=== PATIENT | female | born 2000 | race Caucasian/White ===

== ENCOUNTER 2021-05-17 19:25 | Outpatient (REF) | payer OTHER, SELFPAY | END 2021-05-17 19:26 | disposition home or self-care (01) | LOC: HO.LNP 19:25 | PROVIDERS: Visit Provider Physician Assistant Medical | DX: Z20.822 Contact with and (suspected) exposure to COVID-19 (principal); J06.9 Acute upper respiratory infection, unspecified | CPT/HCPCS: U0003; U0005 ==

== ENCOUNTER 2021-07-10 11:18 | Emergency (ER) | payer OTHER, SELFPAY ==
--- NOTE | ~2021-07-10 | XR_ITS ---
EXAMINATION: XR CHEST CLINICAL INFORMATION: Chest pain COMPARISON: None TECHNIQUE: Frontal view of the chest was obtained. FINDINGS: No significant abnormality is noted involving the heart, lungs, mediastinum, bony thorax or soft tissues. XR/XR chest 1V IMPRESSION: Unremarkable chest examination.
--- NOTE | ~2021-07-10 | CT_ITS ---
EXAMINATION: CT ANGIOGRAM OF THE CHEST WITH AND WITHOUT CONTRAST (CT PULMONARY ANGIOGRAM FOR PE) CLINICAL INFORMATION: Reason for Exam Pleuritic pain short of breath elevated D-dimer rule out pe COMPARISON: None TECHNIQUE: Prior to contrast administration, noncontrast localization images were obtained. Subsequently, multidetector volumetric imaging was performed from the thoracic inlet to below the diaphragms following the administration of 71 mL Omnipaque 350 intravenous contrast. No contrast reaction reported Sagittal, coronal, and MIP oblique sagittal reformatted images were obtained on the CT workstation, uploaded to PACS, and reviewed. This CT examination was performed using dose optimization techniques as appropriate, variously including the following: *Automated exposure control *Adjustment of mA and/or kV according to patient size (this includes techniques or standardized protocols for targeted exams where dose is matched to indication/reason for exam; i.e. extremities or head) *Use of iterative reconstruction technique Total exam dose-length product 365 mGy-cm FINDINGS: QUALITY OF STUDY/CONTRAST BOLUS: Suboptimal with suboptimal bolus along with respiratory artifact. PULMONARY ARTERIES: No central or large segmental pulmonary emboli. THORACIC AORTA: No aneurysm or dissection. LUNG: No focal consolidation, nodules or masses. PLEURA: No pleural effusion or pneumothorax. MEDIASTINUM: Normal heart size. No pericardial effusion. No hilar or mediastinal lymphadenopathy. No evidence of septal bowing or right heart strain. CHEST WALL/AXILLA: No axillary or internal mammary lymphadenopathy. OSSEOUS STRUCTURES: No acute or suspicious osseous abnormality. UPPER ABDOMEN: Unremarkable. No reflux of contrast into the hepatic veins to suggest elevated right heart pressures. CT/CT angio chest PE protocol IMPRESSION: No pulmonary emboli detected. The exam is slightly as described above. VTE: negative
[2021-07-10 11:22] VITALS: BP 148/78; PULSE 91; RESP 18; TEMP 36.6; O2SAT 100; BMI 43.2
--- NOTE | 2021-07-10 11:25 | ECG_ITS ---
Test Reason : CHEST PAIN Blood Pressure : / mmHG Vent. Rate : 090 BPM Atrial Rate : 090 BPM P-R Int : 132 ms QRS Dur : 078 ms QT Int : 348 ms P-R-T Axes : 045 075 030 degrees QTc Int : 425 ms Normal sinus rhythm with sinus arrhythmia Normal ECG No previous ECGs available Referred By: Generic ED Physician Electronically Signed By:RITA TEE
[2021-07-10 12:25] LABS: Hematocrit 43.2 % (37.0-47.0); Hemoglobin 13.5 g/dl (12.0-16.0); Mean Corpuscular HGB Conc 31.3 g/dl (31.0-35.0); Mean Corpuscular Hemoglobin 26.6 pg (27.0-33.0); Mean Corpuscular Volume 85.2 fL (80.0-98.0); Mean Platelet Volume 10.5 fL (9.4-12.3); Platelet Count 390 X10*3/uL (160-400); Red Blood Count 5.07 X10*6/uL (4.20-5.50); Red Cell Distribution Width 15.6 % (11.0-16.0); White Blood Count 11.4 X10*3/uL (4.8-10.8)
[2021-07-10 12:41] LABS: Anion Gap 11 (12-20); Blood Urea Nitrogen 12 mg/dL (9-16); Calcium 9.9 mg/dL (8.4-10.2); Carbon Dioxide 26 mmol/L (22-29); Chloride 107 mmol/L (96-108); Estimated Glomerular Filt Rate > 60; Glucose Random 100 mg/dL (60-115); Potassium 4.3 mmol/L (3.3-5.1); Sodium 140 mmol/L (135-145)
[2021-07-10 12:51] LABS: Troponin-I High Sensitivity < 3.5 ng/L (<3.5-17.0)
[2021-07-10 14:49] LABS: HCG Quantitative < 2 mIU/mL
--- NOTE | 2021-07-10 16:53 | ED_ITS ---
HPI - Chest Pain General Chief Complaint: Chest Pain Stated Complaint: Chest pain/SOB Time Seen by Provider: 07/10/21 14:25 Source: patient Mode of arrival: ambulatory Limitations: no limitations History of Present Illness HPI narrative: 20-year-old female recently tested positive for COVID 2 weeks ago presents to ED for pleuritic chest pain. Patient states anterior chest wall pain and having chest pain on inspiration. Patient denies any swelling of lower extremities, calf pain, or coughing up blood. Patient recieved covid Vaccine Phizer, but no booster. Related Data Home Medications Medication Instructions Recorded Confirmed desogestrel-e.estradiol 0.15 1 tab PO DAILY 02/16/21 mg-0.02 mg(21)/e.estrad 0.01 mg(5) tablet (Kariva (28)) dextroamphetamine-amphetamine ER 1 cap PO QAM 02/16/21 20 mg 24hr capsule,extend release (Adderall XR) escitalopram oxalate 10 mg tablet 10 mg PO DAILY 02/16/21 sertraline 50 mg tablet mg PO 02/16/21 Previous Rx's Medication Instructions Recorded famotidine 40 mg tablet (Pepcid) 40 mg PO BEDTIME PRN #30 tab 02/16/21 omeprazole 40 mg capsule,delayed 40 mg PO DAILY #30 cap 02/16/21 release ondansetron HCl 8 mg tablet 8 mg PO Q8H PRN #20 tab 02/16/21 Allergies Allergy/AdvReac Type Severity Reaction Status Date / Time Penicillins Allergy Severe Stomach Verified 05/17/21 16:48 Upset Review of Systems Verdana 4l Review of Systems: Verdana 4d pleuretic chest pain. Verdana 4d Negative for any coughing up blood, calf pain, or leg swelling Verdana 4d Yes all other systems are reviewed and are negative PMFSH Social History Social History Patient Tobacco Use Status: Never used Tobacco Advance Directives: No Advance Directives Information Provided: No Physical Exam Verdana 4l Vital Signs: Verdana 4d Verdana 4d Vital Signs: Verdana 4d Verdana 4Bd Last Vital Signs Verdana 4d Litigation Secretary New 4d Litigation Secretary New 4d Temp 97.8 F 07/10/21 11:22 Litigation Secretary New 4d Pulse 91 07/10/21 11:22 Litigation Secretary New 4d Resp 18 07/10/21 11:22 BP 148/78 H 07/10/21 11:22 Pulse Ox 100 07/10/21 11:22 BMI result Body Mass Index 43.2 Const: General: cooperative, healthy appearing, comfortable, no acute distress, well developed, alert and awake Orientation/consciousness: oriented to time and patient oriented x3 HENMT: Head: Yes normal to inspection, Yes No palpable skull fracture present, Yes normocephalic and Yes atraumatic Eyes: General: appearance normal, both eyes and all related structures Neck: Neck: Yes normal visual inspection, Yes full ROM, Yes no lymphadenopathy, Yes no meningeal signs, Yes trachea midline, Yes supple, No anterior neck swelling and No tender Chest: Chest palpation & inspection: normal inspection of the chest and normal palpation of entire chest wall Chest/axillae images: 1. positive for chest wall tendeness on palpation. Resp: Effort & Inspection: normal respiratory effort and able to speak in complete sentences Auscultation: clear to auscultation bilaterally Cardio: Jugular venous distension: no JVD Heart sounds: S1 normal heart sound present and S2 normal heart sound present GI: Inspection: Yes normal to inspection and No abdominal wall ecchymosis Palpation (GI): Soft to palpation, not firm, nontender, no guarding and not rigid : General: No CVA tenderness and Yes no CVA tenderness Back/Spine/Pelvis: Back: no CVA tenderness, No CVA tenderness and No back tenderness Skin: General skin exam: no rashes or lesions noted and elasticity normal Neuro: General: oriented to time, patient oriented x3, gait normal, tone normal, moves all extremities, Normal light touch and pain sensation and no meningeal signs Extrem: Other: Lower extremities negative for swelling, pitting edema, or calf tenderness General: Yes normal to inspection and Yes full ROM Psych: Appearance: grossly normal, well kempt and not disheveled Course Course Course Narrative: Patient had rapid medical screening done which shows normal x-ray. Troponin negative CBC normal. Patient states pleurisy and on control with recent COVID will sent D-dimer. Ekg normal Reevaluation(s) Reevaluation #1: Repeat vital signs stable. Patient denied any distress. Most likely costochondritis. Waiting for D-dimer results. Will signed out to [facility] [place]. patient is not in distress. Time: 17:58 MDM - Chest Pain MDM Narrative Medical decision making narrative: costochondritis Lab Data Result diagrams: 07/10/21 12:19 07/10/21 12:19 Labs: Lab Results 07/10/21 07/10/21 07/10/21 Range/Units 12:19 12:19 12:19 WBC 11.4 H (4.8-10.8) X10*3/uL RBC 5.07 (4.20-5.50) X10*6/uL Hgb 13.5 (12.0-16.0) g/dl Hct 43.2 (37.0-47.0) % MCV 85.2 (80.0-98.0) fL MCH 26.6 L (27.0-33.0) pg MCHC 31.3 (31.0-35.0) g/dl RDW 15.6 (11.0-16.0) % Plt Count 390 (160-400) X10*3/uL MPV 10.5 (9.4-12.3) fL Absolute Nucleated RBC 0.000 (0.0-0.012) X10*3/uL Nucleated RBC % (auto) 0.0 (0.0-0.2) /100WBC Sodium 140 (135-145) mmol/L Potassium 4.3 (3.3-5.1) mmol/L Chloride 107 (96-108) mmol/L Carbon Dioxide 26 (22-29) mmol/L Anion Gap 11 L (12-20) BUN 12 (9-16) mg/dL Creatinine 0.68 (0.5-1.4) mg/dL Estim Creat Clear Calc 168.0 Estimated GFR > 60 Random Glucose 100 (60-115) mg/dL Calcium 9.9 (8.4-10.2) mg/dL Troponin I High Sens < 3.5 (<3.5-17.0) ng/L Beta HCG, Quant < 2 mIU/mL ECG Data ECG #1: Interpretation: Normal sinus rhythm. Ventricular rate 90. Parents for 132. QRS 78. QTC 425. Negative STEMI Discharge Plan Discharge Clinical Impression: Atypical chest pain, Acute costochondritis Patient Disposition: Still a Patient Instructions: Chest Pain (ED), Costochondritis (ED), Chest Wall Pain (ED) Additional Instructions: Due to your gastritis avoid NSAIDs. You can take Tylenol or extra Tylenol over the counter for pain relief. Return to ED for any leg swelling, calf pain, coughing up blood, weakness, chest pain or shortness of breath on exertion, or any other concerning symptoms. Please follow-up with primary care provider Prescriptions: No Action escitalopram oxalate 10 mg tablet 10 mg PO DAILY 0RF dextroamphetamine-amphetamine [Adderall XR] 20 mg capsule,extended release 24hr 1 cap PO QAM 0RF sertraline 50 mg tablet PO 0RF desog-e.estradiol/e.estradiol [Kariva (28)] 0.15-0.02 mgx21 /0.01 mg x 5 tablet 1 tab PO DAILY 0RF famotidine [Pepcid] 40 mg tablet 40 mg PO BEDTIME PRN (Reason: Gastritis) Qty: 30 0RF ondansetron HCl 8 mg tablet 8 mg PO Q8H PRN (Reason: nausea and vomiting) Qty: 20 0RF omeprazole 40 mg capsule,delayed release(DR/EC) 40 mg PO DAILY Qty: 30 0RF Stand Alone Forms: Work/School Release Print Language: Estonian
[2021-07-10 17:55] VITALS: BP 129/72; PULSE 85; RESP 18; O2SAT 100
--- NOTE | 2021-07-10 18:25 | PC.NURSE ---
UNABLE TO DRAW LABS. WAITING PCT TO DRAW D DIMER.
[2021-07-10 18:46] LABS: Prothrombin Time 11.8 SEC (9.9-13.0)
[2021-07-10 18:48] LABS: D Dimer High Sensitivity 294 NG/ML; Partial Thromboplastin Time 34.5 SEC (24.1-38.0)
[2021-07-10] MEDS: iohexoL 350 MG/ML 100 ML INFUS..BTL IV (20:09)
[2021-07-10 20:40] VITALS: BP 138/78; PULSE 90; RESP 18; O2SAT 99
== END 2021-07-10 21:34 | disposition still patient (30) ==
PROVIDERS: Physician Assistant; Emergency Provider Internal Medicine
DX: R07.89 Other chest pain (principal); M94.0 Chondrocostal junction syndrome [Tietze]; Z86.16 Personal history of COVID-19
CPT/HCPCS: 36415; 71045; 71275; 80048; 84484; 84702; 85027; 85379; 85610; 85730; 93005; 99284; Q9967

== ENCOUNTER 2022-02-05 11:10 | Emergency (ER) | payer OTHER, SELFPAY ==
[2022-02-05 11:22] VITALS: BP 162/99; PULSE 89; RESP 18; TEMP 37; O2SAT 100; BMI 43.2
[2022-02-05 11:48] LABS: Strep A Nucleic Acid Negative (Negative)
[2022-02-05 12:01] LABS: COVID-19 Test Negative (Negative); IDNOW Serial# 9DB6401D
[2022-02-05 12:02] LABS: IDNOW Serial# 55D5AD1C; Influenza A Negative (Negative); Influenza B2 Negative (Negative)
--- NOTE | 2022-02-05 15:06 | ED.GENADULT ---
HPI - General Adult General Chief complaint: Upper Respiratory Symptoms Stated complaint: Swollen tonsils Time Seen by Provider: 02/05/22 13:59 Source: patient and family (mother) Mode of arrival: ambulatory Limitations: no limitations History of Present Illness HPI narrative: Patient is a 21 year old female presenting to the emergency department today with swollen tonisils. Patient states that since October of 2021 she has been battling recurrent tonsil/throat infections. Patient states that she has an appointment with an ENT but can't get in until early March. Patient states that in the past she was given steroid pack and a Z-pack antibiotic but they don't seem to help. Patient denies any dizziness, lightheadedness, abdominal pain, nausea, vomiting, fever, chills, blurry vision, double vision, loss of vision, chest pain, difficulty breathing, shortness of breath, back pain, night sweats, pain with urination, increased urinary frequency, increased urinary urgency, blood in her urine or stool, syncope or a near syncopal episode, recent trauma or falls, bowel incontinence, bladder incontinence, bowel retention, bladder retention, or any other complaints at this time. Onset (ago): month(s) (3) Radiation: non-radiation Severity: mild Severity scale (1-10): 1 Quality: dull Pain Consistency: constant Relieving factors: none Exacerbating factors: none Associated symptoms: denies other symptoms Treatments prior to arrival: none Related Data Home Medications Medication Instructions Recorded Confirmed desogestrel-e.estradiol 0.15 1 tab PO DAILY 02/16/21 11/02/21 mg-0.02 mg(21)/e.estrad 0.01 mg(5) tablet (Kariva (28)) dextroamphetamine-amphetamine ER 1 cap PO QAM 02/16/21 11/02/21 20 mg 24hr capsule,extend release (Adderall XR) escitalopram oxalate 10 mg tablet 10 mg PO DAILY 02/16/21 11/02/21 sertraline 50 mg tablet mg PO 02/16/21 11/02/21 Previous Rx's Medication Instructions Recorded famotidine 40 mg tablet (Pepcid) 40 mg PO BEDTIME PRN Gastritis #30 02/16/21 tabs omeprazole 40 mg capsule,delayed 40 mg PO DAILY #30 caps 02/16/21 release ondansetron HCl 8 mg tablet 8 mg PO Q8H PRN nausea and 02/16/21 vomiting #20 tabs clindamycin HCl 300 mg capsule 300 mg PO TID #30 caps 11/02/21 lidocaine HCl 2 % mucosal solution 1.2 ml mucous membrane BID PRN 02/05/22 (Lidocaine Viscous) pain #100 mL prednisone 20 mg tablet 20 mg PO DAILY 12 days #26 tabs 02/05/22 Allergies Allergy/AdvReac Type Severity Reaction Status Date / Time Penicillins Allergy Severe Stomach Verified 11/02/21 15:57 Upset Review of Systems Constitutional: Constitutional: Reports no additional constitutional complaints, Denies chills, Denies fever(s) and Denies night sweats Eyes: Eyes: Reports no additional eye complaints, Denies blurry vision, Denies change in vision, Denies diplopia, Denies eye discharge, Denies loss of vision and Denies eye pain ENT: Denies dizziness and Reports sore throat Cardiovascular: Cardiovascular: Reports no additional cardiovascular complaints, Denies chest pain, Denies lightheadedness, Denies Loss of Consciousness and Denies dyspnea Respiratory: Respiratory: Reports no additional respiratory complaints and Denies dyspnea Gastrointestinal: Gastrointestinal: Reports no additional gastrointestinal complaints, Denies abdominal pain, Denies melena, Denies hematochezia, Denies change in bowel habits and Denies change in stool character Genitourinary: Genitourinary: Denies hematuria, Denies urinary frequency, Denies dysuria, Denies urinary incontinence, Denies urinary hesitancy and Denies urinary urgency Musculoskeletal: Musculoskeletal: Reports no additional musculoskeletal complaints, Denies numbness and Denies tingling Neurologic: Denies dizziness, Denies loss of vision, Denies numbness and Denies tingling Psychiatric: Psychiatric: Reports no additional psychiatric complaints Endocrine: Endocrine: Reports no additional endocrine complaints Hematologic/Lymphatic: Hematologic/Lymphatic: Reports no additional hematologic/lymphatic complaints Allergic/Immunologic: Allergic/Immunologic: Reports no additional allergic/immunologic complaints PMFSH Past Medical History Attestation statement: The following information was validated with the patient. Source: old records reviewed Social History Social History Patient Tobacco Use Status: Never used Tobacco Advance Directives: No Advance Directives Information Provided: No Physical Exam ED Vital Signs: Vital Signs - 24 hr 02/05/22 11:22 Temperature 98.6 F Pulse Rate 89 Respiratory Rate 18 Blood Pressure 162/99 H Pulse Oximetry 100 Oxygen Delivery Method Room Air BMI result Body Mass Index 43.2 Const General: cooperative, no acute distress, alert and awake Nutritional Appearance: well nourished Orientation/consciousness: patient oriented x3 Limitations: no limitations HENMT Head: Yes normal to inspection and Yes atraumatic Ears: hearing grossly normal bilaterally and external ears normal General nose exam: Normal external nose present, no nasal discharge noted and no epistaxis Face and sinus: Yes normal facial exam, No abrasion and No laceration Mouth: Normal oral and palatal mucosa present, no drooling and no muffled voice Throat: Yes abnormal tonsil (significant swelling) Eyes General: appearance normal, both eyes and all related structures Periorbital: periorbital findings normal Eyelids: Yes eyelids normal Conjunctivae: conjunctivae normal Pupils: Equal, round and reactive pupils present EOM: EOMs intact bilaterally Neck Neck: Yes normal visual inspection, Yes full ROM and Yes no lymphadenopathy Chest Chest palpation & inspection: normal inspection of the chest Resp Effort & Inspection: normal respiratory effort and able to speak in complete sentences Auscultation: clear to auscultation bilaterally Cardio Rate: regular rate Rhythm: regular rhythm GI Inspection: Yes normal to inspection Neuro General: patient oriented x3 and moves all extremities Cranial nerves: Yes Equal, round and reactive pupils present Cognition (Neuro): normal cognition Motor exam (neuro): 5/5 motor strength present throughout Sensory Exam: Normal double simultaneous stimulation for sensation Coordination: [id number] test normal Extrem General: Yes normal to inspection, Yes full ROM and Yes capillary refill normal Psych Appearance: grossly normal Mental Status: mental status grossly normal Affect: normal affect Attitude: cooperative Thought process: Normal thought process present Thought content: Normal thought content present Insight: Good insight present (Psych) Medical Decision Making [facility] Narrative Medical decision making narrative: Patient is a 21 year old female presenting to the emergency department today with throat pain. Patient's physical exam showed swollen tonsils however, they were not touching, there was no uvular deviation, and no exudate present. I explained my physical exam findings as well as all test results to the patient and the patient's mother. I answered all questions asked by the patient and the patient's mother. I stressed the importance of the patient taking her medication as prescribed. I stressed the importance of the patient following up with her primary care provider and ENT. I stressed the importance of the patient returning to the emergency department immediately if her symptoms were to worsen or ifs she were to develop any dizziness, shortness of breath, difficulty breathing, chest pain, blurry vision, loss of vision, nausea, vomiting, abdominal pain, fever, chills, back pain, or any other complaints. Patient and the patient's mother verbalized agreement and understanding with this treatment plan and discharge. Differential Diagnosis Differential Diagnosis: pharyngitis / tonsilitis Medical Records Medical records reviewed: Yes I reviewed the patient's medical records. Lab Data Lab results reviewed: Yes I reviewed the patient's lab results. Labs: Lab Results 02/05/22 02/05/22 02/05/22 Range/Units 11:25 11:26 11:26 COVID-19 (KAT) Negative (Negative) COVID-19 Clin Com See Note Influenza Type A (RUPA) Negative (Negative) Influenza Type B (RUPA) Negative (Negative) Influenza A & B Note See Note S. pyogenes GrpA RUPA Negative (Negative) Discharge Plan Discharge Clinical Impression: Pharyngitis Patient Disposition: Home, Self-Care Instructions: Pharyngitis (ED) Additional Instructions: Follow up with your primary care provider and an ENT provider. Return to the emergency department immediately if your symptoms worsen or if you develop any dizziness, shortness of breath, difficulty breathing, chest pain, blurry vision, loss of vision, nausea, vomiting, abdominal pain, fever, chills, back pain, or any other complaints. Prescriptions: New prednisone 20 mg tablet 20 mg PO DAILY 12 Days Qty: 26 0RF Rx Instructions: Take 3 tablets for 5 days THEN; Take 2 tablets for 4 days THEN; Take 1 tablet for 3 days lidocaine HCl [Lidocaine Viscous] 2 % solution 1.2 ml mucous membrane BID PRN (Reason: pain) Qty: 100 0RF Rx Instructions: gargle and spit No Action escitalopram oxalate 10 mg tablet 10 mg PO DAILY dextroamphetamine-amphetamine [Adderall XR] 20 mg capsule,extended release 24hr 1 cap PO QAM sertraline 50 mg tablet PO desog-e.estradiol/e.estradiol [Kariva (28)] 0.15-0.02 mgx21 /0.01 mg x 5 tablet 1 tab PO DAILY famotidine [Pepcid] 40 mg tablet 40 mg PO BEDTIME PRN (Reason: Gastritis) Qty: 30 0RF ondansetron HCl 8 mg tablet 8 mg PO Q8H PRN (Reason: nausea and vomiting) Qty: 20 0RF omeprazole 40 mg capsule,delayed release(DR/EC) 40 mg PO DAILY Qty: 30 0RF clindamycin HCl 300 mg capsule 300 mg PO TID Qty: 30 0RF Referrals: [facility] [Provider Group] (Call to establish and follow up with an ENT provider. ) [facility] [place]Provider Group] (Call to establish and follow up with a primary care provider. If you already have a primary care provider, please call and follow up with them. ) [facility]] (Call to establish and follow up with a primary care provider. If you already have a primary care provider, please call and follow up with them. ) [facility] [[facility]] (Call to establish and follow up with a primary care provider. If you already have a primary care provider, please call and follow up with them. ) Stand Alone Forms: Work/School Release Interventions: ED Discharge Assessment Last Done: 02/05/22 16:17 Discharge Date/Time: 02/05/22 16:18 Print Language: Citizen Of [place]
== END 2022-02-05 16:18 | disposition home or self-care (01) ==
PROVIDERS: Emergency Provider Emergency Medicine
DX: J02.9 Acute pharyngitis, unspecified (principal); Z20.822 Contact with and (suspected) exposure to COVID-19
CPT/HCPCS: 87502; 87635; 87651; 99282; 99283

== ENCOUNTER → 2023-06-14 13:42 | Outpatient (BNVA) | payer OTHER, SELFPAY | PROVIDERS: Visit Provider Physician Assistant | DX: O9A.212 Injury, poisoning and certain other consequences of external causes complicating pregnancy, second trimester (principal); S80.01XA Contusion of right knee, initial encounter; S29.012A Strain of muscle and tendon of back wall of thorax, initial encounter; S39.012A Strain of muscle, fascia and tendon of lower back, initial encounter; W01.0XXA Fall on same level from slipping, tripping and stumbling without subsequent striking against object, initial encounter; Z3A.23 23 weeks gestation of pregnancy | CPT/HCPCS: 99203 ==

== ENCOUNTER → 2025-04-05 12:43 | Outpatient (BNVA) | payer OTHER, SELFPAY | PROVIDERS: Visit Provider Physician Assistant Medical | DX: S39.012A Strain of muscle, fascia and tendon of lower back, initial encounter (principal); X50.1XXA Overexertion from prolonged static or awkward postures, initial encounter; M54.18 Radiculopathy, sacral and sacrococcygeal region | CPT/HCPCS: 99203 ==

== ENCOUNTER → 2025-04-08 08:15 | Outpatient (BNVA) | payer OTHER, SELFPAY | PROVIDERS: Visit Provider Physician Assistant Medical | DX: S39.012A Strain of muscle, fascia and tendon of lower back, initial encounter (principal); X50.1XXA Overexertion from prolonged static or awkward postures, initial encounter; M54.18 Radiculopathy, sacral and sacrococcygeal region | CPT/HCPCS: 72110; 72170; 99214 ==

== ENCOUNTER → 2025-04-16 12:57 | Outpatient (BNVA) | payer OTHER, SELFPAY | PROVIDERS: Visit Provider Physician Assistant Medical | DX: S39.012D Strain of muscle, fascia and tendon of lower back, subsequent encounter (principal); X50.1XXD Overexertion from prolonged static or awkward postures, subsequent encounter | CPT/HCPCS: 99213 ==

== ENCOUNTER → 2025-04-22 09:53 | Outpatient (BNVA) | payer OTHER, SELFPAY | PROVIDERS: Visit Provider Emergency Medicine | DX: S39.012D Strain of muscle, fascia and tendon of lower back, subsequent encounter (principal); X50.1XXD Overexertion from prolonged static or awkward postures, subsequent encounter; M54.18 Radiculopathy, sacral and sacrococcygeal region | CPT/HCPCS: 99213 ==

== ENCOUNTER → 2025-04-29 11:18 | Outpatient (BNVA) | payer OTHER, SELFPAY | PROVIDERS: PCP Physician Assistant; Visit Provider Physician Assistant Medical | DX: S39.012D Strain of muscle, fascia and tendon of lower back, subsequent encounter (principal); X50.1XXD Overexertion from prolonged static or awkward postures, subsequent encounter | CPT/HCPCS: 99213 ==

== ENCOUNTER → 2025-05-13 09:53 | Outpatient (BNVA) | payer OTHER, SELFPAY | PROVIDERS: PCP Physician Assistant; Visit Provider Physician Assistant Medical | DX: S39.012D Strain of muscle, fascia and tendon of lower back, subsequent encounter (principal); X50.1XXD Overexertion from prolonged static or awkward postures, subsequent encounter; Z02.79 Encounter for issue of other medical certificate | CPT/HCPCS: 99213 ==

== ENCOUNTER 2025-06-01 15:00 | Outpatient (RCR) | payer OTHER, SELFPAY ==
--- NOTE | 2025-04-26 13:40 | MHC.PT.EP ---
[facility] [place] Office [place] Office [place] Office [address] Kolby Wright [address] [phone] F: [phone] F: [phone] F: [phone] F: [phone] Physical Therapy Plan of Care Date of Evaluation: 04/26/25 Date of Surgery: n/a Diagnosis: acute lumbar strain Assessment: Patient is a 24 year old female presenting to PT with complaints of pain in her low back. Pt reports onset of pain began 04/05/2025 due to picking up a child at work. She presents today with impairments in pain, lumbar ROM, hip strength. 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 Clinical presentation today is most consistent with signs and sx associated with low back pain and pt will benefit from skilled PT 2 week x 4 weeks to address the following problems and impairments noted upon evaluation: pain, lumbar ROM, hip strength. These problems limit the patient with the following functional activities: work, sitting, standing, ADLs, bending, lifting. The prescribed treatment plan of care is medically necessary. Co-morbidities of none were identified and taken into considerations of plan of care. Pt was educated on HEP, role of PT, prognosis, POC. Frequency and Duration: The patient will be seen 2 x week x 4 weeks Short Term Goals: Pt will demonstrate ability to move through available lumbar ROM with min to no pain in 2 weeks. Pt will demonstrate improved hip MMT strength by 1/3 grade in 2 weeks. Alf Goals: Pt will demonstrate improved Micheline score by 10% in 4 weeks for improved functional mobility. Pt will demonstrate ability to bend and lift with min to no pain in 4 weeks for prepare for return to work. Pt will demonstrate ability to complete ADLs with min to no pain in 4 weeks for return to PLOF. Treatment Plan: Modalities to reduce pain, spasms and effusion. Manual therapy to restore motion and function. Therapeutic exercise to improve strength and flexibility. Neuromuscular re-education for posture and balance. Therapeutic activities to return to functional activities of daily living. Electronically signed by: Amira Mccoy, PT, DPT, ATC Please sign and return to therapist. Thank you for your referral.
--- NOTE | 2025-06-02 09:36 | MHC.PT.DC ---
[facility] [place] Office [place] Office [place] Office [address] Kolby Wright [address] [phone] F: [phone] F: [phone] F: [phone] F: [phone] Physical Therapy Discharge Report Diagnosis: acute lumbar strain Date of Surgery: n/a Date of Evaluation: 04/26/25 Date of Discharge: 06/02/25 Treatments to Date: 7 Cancellations to Date: 3 No Shows to Date: 0 Discharge Status: Improved Function Independent with HEP Discharge Summary: Pt called and cancelled her last remaining appointment stating she would like to be d/c. Electronically signed by: Amira Mccoy, PT, DPT, ATC Please sign and return to therapist. Thank you for your referral.
== END 2025-06-02 09:37 | disposition home or self-care (01) ==
LOC: HO.PTCHIC 15:00
PROVIDERS: PCP Physician Assistant; Visit Provider Physician Assistant Medical
DX: S39.012D Strain of muscle, fascia and tendon of lower back, subsequent encounter (principal); R25.2 Cramp and spasm; M54.10 Radiculopathy, site unspecified; M53.3 Sacrococcygeal disorders, not elsewhere classified
CPT/HCPCS: 97110; 97140; 97161